=== PATIENT | female | born 1985 | race Caucasian/White ===

== ENCOUNTER 2018-04-28 17:11 | Outpatient (CLI) ==
[2018-04-28 17:35] LABS: URINE PREGNANCY TEST NEGATIVE (NEGATIVE)
--- NOTE | 2018-04-29 06:05 | DI ---
EXAM: Two views of the left hip HISTORY: Pain in the left hip and lower back. COMPARISON: Right hip x-rays same day FINDINGS: Left hip demonstrates no cortical irregularity or displaced fracture. There is no lytic or blastic lesion. The joint space is maintained. The adjacent pelvis is normal. The soft tissues ar e unremarkable. IMPRESSION: No acute abnormality or fracture of the left hip.
--- NOTE | 2018-04-29 06:06 | DI ---
EXAM: Two views of the right hip HISTORY: Right hip pain. COMPARISON: Same day left hip x-ray FINDINGS: There is no cortical irregularity or displaced fracture of the right hip. Joint spaces anant ntained. There is no lytic or blastic lesion. The soft tissues are normal. The adjacent osseous st ructures of the pelvis are normal. IMPRESSION: No acute abnormality of the right hip.
--- NOTE | 2018-04-29 06:41 | DI ---
EXAM: Five views of the lumbar spine HISTORY: Pain in the right hip and back. COMPARISON: Lumbar spine x-rays 12/01/2017 FINDINGS: There is no acute compression fracture or subluxation. There is no lytic or blastic lesion . The facets and posterior processes are unremarkable with minimal facet arthropathy. Lumbosacral j unction is intact. The soft tissues are normal. There is minimal narrowing of the lumbosacral junct ion. IMPRESSION: 1. No acute abnormality or compression fracture. 2. Minimal narrowing of the lumbosacral junction and minimal facet arthropathy.
== END 2018-04-28 17:12 | disposition home or self-care (01) ==
LOC: RAD 17:11
PROVIDERS: ATTEND Nurse Practitioner Family
DX: M25.552 Pain in left hip (principal); M25.551 Pain in right hip; M54.5 Low back pain
CPT/HCPCS: 81025

== ENCOUNTER 2018-08-03 10:11 | Outpatient (CLI) ==
--- NOTE | 2018-08-04 17:38 | MRI ---
EXAM: Lumbar spine MRI with and without contrast. HISTORY: Low back pain with radiculopathy. Degenerative disc disease. Post laminectomy syndrome. COMPARISON: Lumbar spine radiographs 04/28/2018, lumbar spine MRI 12/01/2016. TECHNIQUE: Multiplanar, multisequence MR images were acquired of the lumbar spine before and after a dministration of 10 ml Omniscan intravenous contrast. FINDINGS: Five non-rib bearing lumbar vertebra are present. Conus medullaris ends at L1-2 and has n ormal morphology and signal intensity. After administration of contrast, there is no abnormal leptom eningeal contrast enhancement. Canal diameter is developmentally mildly narrow. There is minor rota tory thoracolumbar levoscoliosis centered at L2-3 and mild straightening of the usual lumbar lordosis . There is 2.2 mm retrolisthesis of L5 on S1. The lumbar vertebra are normal in height and intrinsi c bone marrow signal and there is desiccation of the central intervertebral discs. There is minor en dplate irregularity at L1-2 with a minor concavity along the posterior L2 superior endplate with rashad r type 2 endplate changes. At L5-S1, there is a mild diffuse disc bulge with endplate osteophytes an d moderate disc space narrowing. The partially visualized liver, spleen and kidneys are normal. There are no paravertebral masses. T12-L1: The intervertebral disc is normal. L1-2: There is a minimal posterior disc bulge that is considered physiologic. L2-3: There is a minimal posterior disc bulge that may be physiologic. L3-4: The intervertebral disc is normal. L4-5: There is a minimal disc bulge that minimally narrows the inferior neural foramina and moderate bilateral facet and ligamentum flavum hypertrophy. There is no central canal stenosis or significan t foraminal stenosis. L5-S1: There is retrolisthesis of L5 on S1 and there is a mild diffuse disc bulge with endplate oste ophytes and a moderate central and left posterolateral disc extrusion with 8 mm inferior migration of the central component of the herniated disc fragment and enhancing granulation tissue along the left posterolateral margin of the disc herniation which posteriorly displaces the left S1 nerve in the la teral recess. There are postoperative left hemilaminectomy and partial medial facetectomy changes wi th enhancing left anterior and lateral epidural granulation tissue that partially surrounds the left S1 nerve. Mild right facet and ligamentum flavum hypertrophy and residual left facet arthropathy is present and there is mild left neural foraminal stenosis. There is no central canal stenosis. IMPRESSION: 1. Minor lumbar degenerative spondylosis and facet arthropathy without spinal stenosis. 2. Post left L5-S1 microdiskectomy changes with enhancing granulation tissue in the left anterior an d lateral epidural space partially surrounding the left S1 nerve and a residual or recurrent moderate central and left posterolateral disc extrusion with encroachment on the left S1 nerve in the lateral recess and 8 mm i nferior migration of the central component of the herniated disc fragment along the dorsum of the S1 vertebra.
== END 2018-08-03 10:12 | disposition home or self-care (01) ==
LOC: RAD 10:11
PROVIDERS: ATTEND Pain Medicine Interventional Pain Medicine
DX: M51.36 Other intervertebral disc degeneration, lumbar region (principal); M99.73 Connective tissue and disc stenosis of intervertebral foramina of lumbar region; M51.37 Other intervertebral disc degeneration, lumbosacral region; M51.17 Intervertebral disc disorders with radiculopathy, lumbosacral region; M47.816 Spondylosis without myelopathy or radiculopathy, lumbar region; M47.817 Spondylosis without myelopathy or radiculopathy, lumbosacral region; M96.1 Postlaminectomy syndrome, not elsewhere classified; M51.16 Intervertebral disc disorders with radiculopathy, lumbar region
CPT/HCPCS: 36415; 82565